=== PATIENT | female | born 1980 | race Caucasian/White ===

== ENCOUNTER 2017-03-05 06:42 | Emergency (ER) | payer OTHER ==
[2017-03-05 06:49] VITALS: RESP 16; O2SAT 99
--- NOTE | 2017-03-05 07:34 | EDPHY ---
H & P Time Seen by Provider: 03/05/17 07:33 HPI/ROS: Chief complaint. Abdominal pain HPI. 36-year-old female male with sharp lower and somewhat left abdominal pain that began yesterday. She removed the tampon yesterday that had been present from her last menstrual period a week ago. She then developed some pain all over her abdomen. Denies fever, vomiting, diarrhea, urinary symptoms. She has an IUD in place which is been present for 7 years. Her pain is better after taking some ibuprofen. No history of abdominal surgery or similar symptoms. ROS Constitutional. no fever/chills, no weakness Eyes. no problems with vision ENT. no sore throat, no nasal drainage Cardiovascular. no chest pain Respiratory. no shortness of breath, no cough Abdominal. Low abdominal pain . no problems urinating MS. no calf pain/swelling, no neck/back pain, no joint pain Skin. no rash Lymph. no swollen glands Neuro. no headache, no dizziness, no difficulty walking or with speech Past Medical/Surgical History: Hypothyroid and IUD Social History: , nonsmoker, no alcohol Smoking Status: Never smoked Physical Exam: General Appearance: Alert pleasant well-developed female mild distress vital signs are stable Eyes: Pupils equal and round no pallor or injection. ENT, Mouth: Mucous membranes are moist. Respiratory: There are no retractions, lungs are clear to auscultation. Cardiovascular: Regular rate and rhythm. Gastrointestinal: Abdomen is soft with minimal tenderness but she shows me suprapubic area tenderness and left side tenderness that is mild. She does have some tenderness over McBurney's point Neurological: Awake and alert, sensory and motor exams grossly normal. Skin: Warm and dry, no rashes. Musculoskeletal: Neck is supple nontender. Extremities symmetrical, full range of motion. Psychiatric: Patient is oriented X 3, there is no agitation. Constitutional: Initial Vital Signs Temperature (C) 37.0 C 03/05/17 06:45 Heart Rate 54 L 03/05/17 06:45 Respiratory Rate 16 03/05/17 06:45 Blood Pressure 100/60 03/05/17 06:45 O2 Sat (%) 99 03/05/17 06:45 O2 Delivery Mode Room Air Allergies/Adverse Reactions: No Known Allergies Allergy (Unverified 03/05/17 06:44) Home Medications: Medication Instructions Recorded Synthroid 03/05/17 Medical Decision Making - Diagnostics Imaging Results: Ultrasound of pelvis and right lower quadrant. Appendix is not visualized. She has left ovarian follicular cysts. No evidence for torsion. Right ovary is normal. Uterus is normal with IUD in good anatomic position. There is an incidental finding of a nodule in the left rectus muscle measuring 1.6 x 1.2 cm. Recommended follow-up MRI of the abdominal wall without and with contrast. Procedures: IV normal saline ED Course/Re-evaluation: Re-evaluation at 9:20 a.m.--patient is stable and without symptoms. She and I discussed laboratory and imaging study results. We discussed the findings of follicular cyst left ovary and the incidental finding of a nodule in the left lower rectus muscle with recommendation for further evaluation as an outpatient. She expresses understanding agreement I reexamined the patient's abdomen but I am unable to feel the nodule. Differential Diagnosis: I have considered toxic shock syndrome however the patient has normal white blood cell count and no fever or rash. Considered appendicitis as well as urinary tract infection and ovarian cyst. I also considered miss placement of the IUD - Data Points Laboratory Results: Laboratory Results 03/05/17 07:50 03/05/17 07:50 03/05/17 03/05/17 03/05/17 07:50 07:50 07:50 WBC 4.29 10^3/uL 10^3/uL (3.80-9.50) RBC 4.49 10^6/uL 10^6/uL (4.18-5.33) Hgb 14.1 g/dL g/dL (12.6-16.3) Hct 40.2 % % (38.0-47.0) MCV 89.5 fL fL (81.5-99.8) MCH 31.4 pg pg (27.9-34.1) MCHC 35.1 g/dL g/dL (32.4-36.7) RDW 11.4 % L % (11.5-15.2) Plt Count 230 10^3/uL 10^3/uL (150-400) MPV 10.1 fL fL (8.7-11.7) Neut % (Auto) 54.4 % % (39.3-74.2) Lymph % (Auto) 35.4 % % (15.0-45.0) [place] % (Auto) 7.9 % % (4.5-13.0) Eos % (Auto) 1.4 % % (0.6-7.6) Baso % (Auto) 0.7 % % (0.3-1.7) Nucleat RBC Rel Count 0.0 % % (0.0-0.2) Absolute Neuts (auto) 2.33 10^3/uL 10^3/uL (1.70-6.50) Absolute Lymphs (auto) 1.52 10^3/uL 10^3/uL (1.00-3.00) Absolute Monos (auto) 0.34 10^3/uL 10^3/uL (0.30-0.80) Absolute Eos (auto) 0.06 10^3/uL 10^3/uL (0.03-0.40) Absolute Basos (auto) 0.03 10^3/uL 10^3/uL (0.02-0.10) Absolute Nucleated RBC 0.00 10^3/uL 10^3/uL (0-0.01) Immature Gran % 0.2 % % (0.0-1.1) Immature Gran # 0.01 10^3/uL 10^3/uL (0.00-0.10) Sodium 138 mEq/L mEq/L (134-144) Potassium 4.3 mEq/L mEq/L (3.5-5.2) Chloride 108 mEq/L mEq/L (97-110) Carbon Dioxide 22 mEq/l mEq/l (22-31) Anion Gap 8 mEq/L mEq/L (8-16) BUN 15 mg/dL mg/dL (7-23) Creatinine 0.7 mg/dL mg/dL (0.6-1.0) Estimated GFR > 60 Glucose 91 mg/dL mg/dL (70-100) Calcium 8.9 mg/dL mg/dL (8.5-10.4) Beta HCG, Qual NEGATIVE Urine Color Urine Appearance Urine pH Ur Specific [place] Urine Protein Urine Ketones Urine Blood Urine Nitrate Urine Bilirubin Urine Urobilinogen Ur Leukocyte Esterase Urine Glucose 03/05/17 07:25 WBC RBC Hgb Hct MCV MCH MCHC RDW Plt Count MPV Neut % (Auto) Lymph % (Auto) [place] % (Auto) Eos % (Auto) Baso % (Auto) Nucleat RBC Rel Count Absolute Neuts (auto) Absolute Lymphs (auto) Absolute Monos (auto) Absolute Eos (auto) Absolute Basos (auto) Absolute Nucleated RBC Immature Gran % Immature Gran # Sodium Potassium Chloride Carbon Dioxide Anion Gap BUN Creatinine Estimated GFR Glucose Calcium Beta HCG, Qual Urine Color PALE YELLOW Urine Appearance CLEAR Urine pH 6.0 (5.0-7.5) Ur Specific [place] 1.003 (1.002-1.030) Urine Protein NEGATIVE (NEGATIVE) Urine Ketones NEGATIVE (NEGATIVE) Urine Blood NEGATIVE (NEGATIVE) Urine Nitrate NEGATIVE (NEGATIVE) Urine Bilirubin NEGATIVE (NEGATIVE) Urine Urobilinogen NEGATIVE EU EU (0.2-1.0) Ur Leukocyte Esterase NEGATIVE (NEGATIVE) Urine Glucose NEGATIVE (NEGATIVE) Medications Given: Discontinued Medications Sodium Chloride (Ns) 1,000 mls @ 0 mls/hr IV ONCE ONE PRN Reason: Wide Open Stop: 03/05/17 07:45 Last Admin: 03/05/17 07:55 Dose: 1,000 mls Departure - Departure Disposition: Home, Routine, Self-Care Clinical Impression: Left ovarian cyst Condition: Good Instructions: Acute Abdominal Pain (ED) Additional Instructions: Ibuprofen 600 mg every 6 hours as needed for discomfort. Return for fever, worsening abdominal pain, rash. You have an incidental finding of a 1.6 x 1.2 cm nodule in the left lower abdominal muscle. Discussed with Dr. Griffin further evaluation which would be MRI of the abdominal wall with IV contrast. Please see Dr. Griffin this week for re-evaluation of abdominal pain and discussion of further evaluation of the nodule Referrals: Jin Griffin MD [Primary Care Provider] - 2-3 days, call for appt.
[2017-03-05] MEDS ORDERED: NS 1,000 ML IV ONE (07:44)
[2017-03-05 07:55] LABS: % IMMATURE GRANULYOCYTES 0.2 % (0.0-1.1); ABSOLUTE IMMATURE GRANULOCYTES 0.01 10^3/uL (0.00-0.10); ADD DIFF? NO; ADD MORPH? NO; ADD SCAN? NO; ATYPICAL LYMPHOCYTE FLAG 10 (0-99); FRAGMENT RBC FLAG 0 (0-99); HEMATOCRIT 40.2 % (38.0-47.0); HEMOGLOBIN 14.1 g/dL (12.6-16.3); LEFT SHIFT FLG 0 (0-99); LIPEMIA HEMOLYSIS FLAG 90 (0-99); MEAN CELL HEMOGLOBIN 31.4 pg (27.9-34.1); MEAN CELL HEMOGLOBIN CONCENTR. 35.1 g/dL (32.4-36.7); MEAN CELL VOLUME 89.5 fL (81.5-99.8); MEAN PLATELET VOLUME 10.1 fL (8.7-11.7); PLATELET CLUMPS FLAG 10 (0-99); PLATELET COUNT 230 10^3/uL (150-400); RED BLOOD CELL COUNT 4.49 10^6/uL (4.18-5.33); RED CELL DISTRIBUTION WIDTH 11.4 % (11.5-15.2)
[2017-03-05 07:56] LABS: COLOR PALE YELLOW; LEUKOCYTE ESTERASE,URINE NEGATIVE (NEGATIVE); NITRITE,URINE NEGATIVE (NEGATIVE)
[2017-03-05 08:12] LABS: ANION GAP 8 mEq/L (8-16); CALCIUM 8.9 mg/dL (8.5-10.4); CARBON DIOXIDE 22 mEq/l (22-31); CHLORIDE 108 mEq/L (97-110); CREATININE 0.7 mg/dL (0.6-1.0); GLOMERULAR FILTRATION RATE > 60; GLUCOSE 91 mg/dL (70-100); POTASSIUM 4.3 mEq/L (3.5-5.2); SODIUM 138 mEq/L (134-144)
[2017-03-05 09:43] VITALS: BP 106/64; PULSE 52
[2017-03-05 09:44] VITALS: TEMP 98.2
== END 2017-03-05 09:44 | disposition home or self-care (01) ==
DX: N83.202 Unspecified ovarian cyst, left side (principal)

== ENCOUNTER → 2017-03-23 | Outpatient (CLI) | payer OTHER | LOC: BRMIMAGING 08:33 | PROVIDERS: ATTEND Internal Medicine | DX: R93.5 Abnormal findings on diagnostic imaging of other abdominal regions, including retroperitoneum (principal) | CPT/HCPCS: 76705-PO ==